=== PATIENT | male | born 1965 | race Caucasian/White ===

== ENCOUNTER → 2022-07-24 08:11 | Outpatient (CLI) | payer OTHER, SELFPAY ==
--- NOTE | 2022-07-24 | DI.MRI.S_ITS ---
PROCEDURE: MR CERVICAL SPINE WO CON INDICATIONS: Cervicalgia TECHNIQUE: Noncontrast sagittal T1 spin echo and T2 fast spin echo, sagittal STIR, foraminal oblique sagittal T2 fast spin echo, and axial gradient echo or T2 fast spin echo through the cervical spine. COMPARISON: None. FINDINGS: Image quality: This examination is limited by involuntary motion artifact. Alignment and Curvature: There is normal bony alignment. Bone Marrow: Marrow demonstrates normal overall signal. Spinal Cord: Visualized spinal cord has normal size and signal. No cerebellar tonsillar herniation. Paraspinous Soft Tissues: No paravertebral masses. Prevertebral soft tissues are normal in thickness. C2-C3: The disc height is well-preserved. Loss of disc signal is seen at this level. A mild degree of generalized disc osteophyte complex is seen. Mild facet joint hypertrophy is seen. There is moderate left-sided and no significant right-sided neural foraminal narrowing. The central canal is widely patent. C3-C4: The disc height is well-preserved. Loss of disc signal is seen at this level. A mild degree of generalized disc osteophyte complex is seen. Moderate bilateral facet hypertrophy is seen, right worse than left. There is moderate to severe right-sided and at least moderate left-sided neural foraminal narrowing. Mild central canal narrowing is seen. C4-C5: The disc height is well-preserved. Loss of disc signal is seen at this level. Moderate disc osteophyte complex is seen, which is eccentric to the right. There is at least moderate right-sided and [id number] left-sided facet hypertrophy. There is moderate to severe right-sided and moderate left-sided neural foraminal narrowing. Moderate central canal narrowing is seen. There is associated mass effect upon the ventral spinal cord. C5-C6: Moderate loss of disc height is seen. Loss of disc signal is seen. At least moderate disc osteophyte complex is seen, which is eccentric to the left. There is a central/left disc osteophyte protrusion. There is at least moderate facet hypertrophy. There is moderate to severe left-sided and at least moderate right-sided neural foraminal narrowing. Moderate central canal narrowing is seen. There is associated mass effect upon the ventral spinal cord. C6-C7: Moderate loss of disc height is seen. Loss of disc signal is seen. Moderate disc osteophyte complex is seen, with a central disc osteophyte protrusion. Moderate facet joint hypertrophy is seen. Moderate to severe bilateral neural foraminal narrowing can be seen, left worse than right. Mild to moderate central canal narrowing is seen at this level. C7-T1: The disc height is well-preserved. Loss of disc signal is seen at this level. A mild degree of generalized disc osteophyte complex is seen. Mild facet joint hypertrophy is seen. There is moderate left-sided and mild right-sided neural foraminal narrowing. The central canal is widely patent. IMPRESSION: Multiple levels of cervical spine degenerative change are seen, which are overall worst at C5-C6. Dictated by: Beto Ambrose M.D. on 07/24/2022 at 10:07 Approved by: Beto Ambrose M.D. on 07/24/2022 at 10:11
== END ==
PROVIDERS: PCP Nurse Practitioner Family; Referring Provider Nurse Practitioner Family; Visit Provider Nurse Practitioner Family
DX: M47.812 Spondylosis without myelopathy or radiculopathy, cervical region (principal); M54.2 Cervicalgia
CPT/HCPCS: 72141

== ENCOUNTER → 2022-10-31 13:17 | Outpatient (CLI) | payer OTHER, SELFPAY ==
[2022-10-31 15:42] LABS: COVID19 -Nasal RAPID Negative (Negative)
== END ==
PROVIDERS: PCP Nurse Practitioner Family; Visit Provider Surgery
DX: Z01.812 Encounter for preprocedural laboratory examination (principal); Z20.822 Contact with and (suspected) exposure to COVID-19
CPT/HCPCS: 87635; C9803

== ENCOUNTER 2022-11-01 12:45 | Day surgery (SDC) | payer OTHER, SELFPAY ==
--- NOTE | 2022-11-01 | PATH_ITS ---
[facility] Accession Number: [id number] No. of containers..01 Tissue . 01 Material submitted: . colon - TRANSVERSE COLON POLYP . 01 Diagnosis: Transverse Colon, Polyp, Biopsy: Tubular adenoma. [facility] 11/05/2022 1033 Local . 01 Electronically signed: . Emma Coleman MD, Pathologist NPI- [id number] . 01 Gross description: . TRANSVERSE COLON POLYP: Received in formalin is 1 fragment(s) of corcoran, soft tissue measuring 1.3 x 0.2 x 0.1 cm submitted entirely in 1 cassette(s) /CPE 11/02/2022 0617 Local . 01 Pathologist provided ICD-10: D12.3 . 01 CPT . 624238 Performed at: 01 [facility] [address] [place] [address], [place], [place] [id number] MD Bethel Sarah MD Phone: [phone]
[2022-11-01 14:10] VITALS: BP 109/74; PULSE 61; RESP 16; TEMP 36.6; O2SAT 99; BMI 22.4
[2022-11-01] MEDS: LACTATED RINGERS 1,000 ML 42 ML IV (14:40)
--- NOTE | 2022-11-01 14:51 | P.HP_ITS ---
History of Present Illness History of Present Illness Date Patient Seen: 11/01/22 Time Patient Seen: 14:51 Chief complaint: SDC Narrative: Milton is a 57-year-old man who is here for colonoscopy. He has had a colonoscopy many many years ago when he was in the [place] on board a ship. Patient History Medical History (Updated 11/01/22 @ 14:52 by Tony Cristobal MD) Aspiration into airway Generalized headaches GERD with esophagitis Hyperlipidemia Torsion of testicle Urinary frequency Surgical History (Updated 11/01/22 @ 14:09 by Adi Rubio RN) H/O hernia repair History of tonsillectomy Family & Social History Social History: household members spouse Tobacco & Substance use: Smoking Status Never smoker alcohol intake never alcohol intake frequency holiday/special occasion Substance Use Type does not use Meds Home Medications and Allergies Home Medications Medication Instructions Recorded Confirmed Type sodium sul 1.479 gram-potas ch See Rx Instructions PO PER PKG DIR 08/24/22 Rx 0.188 gram-magnes sul 0.225 gram #24 tabs tablet (Sutab) Allergies Allergy/AdvReac Type Severity Reaction Status Date / Time No Known Drug Allergies Allergy Verified 11/01/22 14:07 Exam Vital Signs (past 8 hours): - 11/01/22 14:10 Temperature 97.8 F Pulse Rate 61 Respiratory Rate 16 Blood Pressure 109/74 Pulse Oximetry 99 Oxygen Delivery Method Room Air Oxygen Delivery Method Room Air Const General: healthy appearing Assessment & Plan Assessment and plan (1) Colon cancer screening: Status: Acute Plan We reviewed the risks and benefits of colonoscopy and he would like to proceed Time Spent With Patient Critical Care time: I spent a total of [] minutes of critical care time on this patient's care tod ay; this time is exclusive of procedural time.
--- NOTE | 2022-11-01 14:59 | PM.OP.COLON ---
Operative Date/Time/Diagnoses Date of procedure: 11/01/22 Time of procedure: 15:24 Pre-op diagnosis: Colon cancer screening Post-op diagnosis: same Procedure & Clinicians Study performed: Colonoscopy Same procedure as scheduled: Yes Surgeon: Tony Cristobal Procedure Notes Procedure in detail: Surgeon: Tony Cristobal MD Anesthesia: Susan Cobian CRNA Procedure: The patient was brought to the endoscopy suite, placed in left lateral decubitus position. The patient was connected to monitoring devices. A time-out was performed. Sedation was administered. Once the patient was adequately sedated, a digital rectal exam was performed and was normal. The scope was then inserted and advanced to the cecum where the appendiceal orifice was identified and photographed. The scope was then slowly withdrawn over greater than 6 minutes. The mucosa was thoroughly inspected. There was a 5 mm polyp in the distal transverse colon removed with a cold snare. The scope was retroflexed in the rectum. No other abnormalities were noted. The scope was straightened and removed. The patient was awakened and brought to recovery. Scope withdrawal time: 11 minutes Sedation time: 18 minutes EBL: 3 mL Findings: Distal transverse polyp measuring approximately 5 mm Post-procedure Disposition: PACU
--- NOTE | 2022-11-01 14:59 | PM.HP.1 ---
History of Present Illness History of Present Illness Chief complaint: [facility] [place] Narrative: Milton is a 57-year-old man who is here for colonoscopy. He has had a colonoscopy many many years ago when he was in the [place] on board a ship. Patient History Medical History (Updated 11/01/22 @ 14:52 by Tony Cristobal MD) Aspiration into airway Generalized headaches GERD with esophagitis Hyperlipidemia Torsion of testicle Urinary frequency Surgical History (Updated 11/01/22 @ 14:09 by Adi Rubio RN) H/O hernia repair History of tonsillectomy Family & Social History Social History: household members spouse Tobacco & Substance use: Smoking Status Never smoker alcohol intake never alcohol intake frequency holiday/special occasion Substance Use Type does not use Meds Home Medications and Allergies Home Medications Medication Instructions Recorded Confirmed Type sodium sul 1.479 gram-potas ch See Rx Instructions PO PER PKG DIR 08/24/22 Rx 0.188 gram-magnes sul 0.225 gram #24 tabs tablet (Sutab) Allergies Allergy/AdvReac Type Severity Reaction Status Date / Time No Known Drug Allergies Allergy Verified 11/01/22 14:07 Exam Vital Signs (past 8 hours): - 11/01/22 14:10 Temperature 97.8 F Pulse Rate 61 Respiratory Rate 16 Blood Pressure 109/74 Pulse Oximetry 99 Oxygen Delivery Method Room Air Oxygen Delivery Method Room Air Assessment & Plan Assessment and plan (1) Colon cancer screening: Status: Acute Plan Reviewed risks and benefits of colonoscopy and he would like to proceed Time Spent With Patient Critical Care time: I spent a total of [] minutes of critical care time on this patient's care today; this time is exclusive of procedural time.
[2022-11-01 15:25] VITALS: BP 95/66; PULSE 59; RESP 12; TEMP 36.2; O2SAT 99
[2022-11-01 15:30] VITALS: BP 102/70; PULSE 61; RESP 12; O2SAT 100
[2022-11-01 15:34] VITALS: BP 107/74; PULSE 60; RESP 10; O2SAT 100
[2022-11-01 15:42] VITALS: BP 113/78; PULSE 71; RESP 10; O2SAT 100
== END 2022-11-01 15:56 | disposition home or self-care (01) ==
PROVIDERS: PCP Nurse Practitioner Family; Referring Provider Surgery; Visit Provider Surgery
PROC: 0DJD8ZZ Inspection of Lower Intestinal Tract, Via Natural or Artificial Opening Endoscopic (ICD-10-PCS; CPT 45378; principal; 2022-11-01 14:00)
DX: Z12.11 Encounter for screening for malignant neoplasm of colon (principal); D12.3 Benign neoplasm of transverse colon
CPT/HCPCS: 45385; J2704

== ENCOUNTER 2023-04-13 23:04 | Emergency (ER) | payer OTHER, SELFPAY ==
[2023-04-13 23:16] VITALS: BP 112/72; PULSE 85; RESP 16; TEMP 36.6; O2SAT 100; BMI 22.4
[2023-04-14 02:38] VITALS: BP 120/73; PULSE 66; RESP 20; TEMP 36.6; O2SAT 100
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
== END 2023-04-14 05:12 | disposition home or self-care (01) ==
PROVIDERS: Emergency Provider Emergency Medicine; PCP Nurse Practitioner Family
DX: S40.021A Contusion of right upper arm, initial encounter (principal); W22.8XXA Striking against or struck by other objects, initial encounter
CPT/HCPCS: 73090; 99283

== ENCOUNTER 2023-12-22 14:53 | Emergency (ER) | payer OTHER, SELFPAY ==
[2023-12-22 14:55] VITALS: BP 127/77; PULSE 71; RESP 18; TEMP 36.6; O2SAT 96; BMI 23.3
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
[2023-12-22] MEDS: LIDOCAINE 2% INJ SDV 5ML 5 ML TOP (16:58)
[2023-12-22] MEDS: BACITRACIN OINT 0.9 GM PCKT 1 APPLIC TOP (17:44)
== END 2023-12-22 17:54 | disposition home or self-care (01) ==
PROVIDERS: Emergency Provider Physician Assistant; PCP Nurse Practitioner Family
DX: S61.213A Laceration without foreign body of left middle finger without damage to nail, initial encounter (principal); W26.8XXA Contact with other sharp object(s), not elsewhere classified, initial encounter
CPT/HCPCS: 12001; 99283